=== PATIENT | female | born 1975 ===

== ENCOUNTER 2019-02-11 15:26 | Emergency (ER) | payer SELFPAY ==
[2019-02-11 15:34] VITALS: BP 117/70
--- NOTE | 2019-02-11 15:46 | ER Document Report ---
ED Medical Screen (RME) - General Chief Complaint: Pain With Urination Stated Complaint: PAINFUL URINATION,DARK URINE Time Seen by Provider: 02/11/19 15:43 Mode of Arrival: Ambulatory Information source: Patient Notes: 43-year-old female presents to ED for complaint of painful urination. She states she also needs a refill on her sleeping medicine that she is been taken in [place]. She states it is a refill it is not a new prescription. She has her old prescription bottles with her. States that she is not able to get her medicine she will be coming back manic. She states she does have a history of bipolar. I have greeted and performed a rapid initial assessment of this patient. A comprehensive ED assessment and evaluation of the patient, analysis of test results and completion of medical decision making process will be conducted by an additional ED providers. Physical Exam - Vital signs Vitals: Temp Pulse Resp BP Pulse Ox 97.9 F 64 18 117/70 100 02/11/19 15:32 02/11/19 15:32 02/11/19 15:32 02/11/19 15:32 02/11/19 15:32 Course - Vital Signs Vital signs: Temp Pulse Resp BP Pulse Ox 97.9 F 64 18 117/70 100 02/11/19 15:32 02/11/19 15:32 02/11/19 15:32 02/11/19 15:32 02/11/19 15:32
[2019-02-11 16:26] LABS: APPEARANCE,URINE CLEAR; BILIRUBIN,URINE NEGATIVE (NEGATIVE); COLOR,URINE YELLOW; GLUCOSE, URINE NEGATIVE (NEGATIVE); KETONES,URINE NEGATIVE (NEGATIVE); PROTEIN,URINE NEGATIVE (NEGATIVE)
== END 2019-02-11 16:52 | disposition left against medical advice (07) ==
LOC: ER 15:26
DX: R30.0 Dysuria (principal)
CPT/HCPCS: 81001